=== PATIENT | female | born 2000 | race Hispanic/Latino ===

== ENCOUNTER 2020-08-17 23:22 | Emergency (ER) | payer OTHER, SELFPAY ==
[2020-08-17 23:25] VITALS: BP 110/64; PULSE 112; RESP 16; TEMP 36.8; O2SAT 98
[2020-08-18] MEDS: SODIUM CHLORIDE 0.9% IV 1,000 ML 999 ML IV CONT (00:26)
[2020-08-18] MEDS: KETOROLAC 30 MG/ML VIAL (*BKC) IV PUSH (00:26)
[2020-08-18] MEDS: ONDANSETRON INJ 4 MG/2 ML VIAL IV PUSH (00:26)
--- NOTE | 2020-08-18 00:26 | ED.HA ---
HPI - Headache General Chief Complaint: Headache Stated Complaint: HOPKINS Time Seen by Provider: 08/17/20 23:32 History of Present Illness HPI Narrative: Patient is a 19-year-old female who presents ER with headache. Symptoms began yesterday. Posterior headache feels like her typical migraine. Associate with nausea and vomiting. Has been able to control the headache with Tylenol and reports that she took any medication at this time will cause her to vomit. She has no fevers or chills or sweats. No trauma. No numbness or tingling or change in vision. Patient did go to an urgent care and get swabbed for Covid just to be safe today. Results are pending. Related Data Allergies Allergy/AdvReac Type Severity Reaction Status Date / Time No Known Allergies Allergy Verified 08/18/20 00:27 Review of Systems Constitutional: Constitutional: Denies chills, Denies fever(s) and Denies weakness ENT: Denies nasal congestion and Denies sore throat Gastrointestinal: Gastrointestinal: Denies abdominal pain, Reports nausea and Reports vomiting Neurologic: Reports headache(s), Denies focal weakness and Denies numbness PMFSH Past Medical History Medical History (Updated 08/18/20 @ 01:13 by Tu Gomez MD) Migraines Surgical History Surgical History (Updated 08/18/20 @ 00:27 by Tu Gomez MD) No history of previous surgery Social History Social History (Updated 08/18/20 @ 00:28 by Tu Gomez MD) Smoking status: Never smoker Exam Narrative: Exam Narrative: GENERAL: Well-appearing, well-nourished, and in no acute distress. HEAD: Normocephalic, atraumatic. NECK: Supple. No tenderness. CHEST: Clear to auscultation. No respiratory distress. HEART: Regular rate and rhythm. Normal peripheral pulses. ABDOMEN: Soft, nontender, nondistended. EXTREMITIES: Normal range of motion. No edema. NEURO: Alert and oriented x3. PSYCH: Normal mood and affect. Course Course Emergency Course: HOPKINS improving with toradol. D/c. Vital Signs Vital signs: Vital Signs Temperature 98.2 F 08/17/20 23:25 Pulse Rate 112 H 08/17/20 23:25 Respiratory Rate 16 08/17/20 23:25 Blood Pressure 110/64 08/17/20 23:25 Pulse Oximetry 98 08/17/20 23:25 Temperature 98.2 F 08/17/20 23:25 Pulse Rate 112 H 08/17/20 23:25 Respiratory Rate 16 08/17/20 23:25 Blood Pressure 110/64 08/17/20 23:25 Pulse Oximetry 98 08/17/20 23:25 Discharge Plan Discharge Clinical Impression: Migraine Patient Disposition: Home, Self-Care Condition: Stable Instructions: Migraine Headache (ED) Additional Instructions: Return the ER if you have chest pain or shortness of breath, you cannot keep down food or water, you lose consciousness, you have additional concerns. Prescriptions: New ondansetron 4 mg tablet,disintegrating 4 mg PO Q6H PRN (Reason: nausea and vomiting) Qty: 10 RF: 0 Follow-up/Referrals: PHYSICIAN NOT ON STAFF,NONSTAFF [Primary Care Provider] - 1 Week
[2020-08-18 01:25] VITALS: BP 113/87; PULSE 88; RESP 14; O2SAT 97
== END 2020-08-18 01:25 | disposition home or self-care (01) ==
PROVIDERS: Emergency Provider Emergency Medicine
DX: G43.909 Migraine, unspecified, not intractable, without status migrainosus (principal)
CPT/HCPCS: 96361; 96374; 96375; 99284; J1885; J2405; J7030

== ENCOUNTER 2020-08-19 17:03 | Emergency (ER) | payer OTHER, SELFPAY ==
[2020-08-19 17:10] VITALS: BP 110/57; PULSE 99; RESP 20; TEMP 36.2; O2SAT 100
[2020-08-19 17:21] LABS: Basophils Percent Auto 0.4 % (0.2-1.2); Hematocrit 31.2 % (37.0-47.0); Hemoglobin 10.4 g/dL (12.0-15.0); Immature Granulocyte Absolute 0.01 K/mm3 (0.00-0.031); Immature Granulocyte Percent A 0.2 % (0-0.5); Lymphocytes Absolute Auto 0.99 K/mm3 (0.9-3.2); Lymphocytes Percent Auto 19.1 % (18.3-44.2); Mean Corpuscular HGB Conc 33.3 g/dl (32-36); Mean Corpuscular Hemoglobin 26.8 pg (26-34); Mean Corpuscular Volume 80.4 fl (80-100); Mean Platelet Volume 10.6 fl (7.4-10.4); Monocytes Absolute Auto 0.4 K/mm3 (0.1-0.6); Monocytes Percent Auto 7.9 % (2.6-8.5); Neutrophils Absolute Auto 3.8 K/mm3 (1.3-6.7); Neutrophils Percent Auto 72.4 % (45.5-73.1); Platelet Count Result 166 k/mm3 (150-375); Red Blood Count 3.88 M/mm3 (4.2-5.4); Red Cell Distribution Width 13.2 % (11.5-14.5); White Blood Count 5.2 K/mm3 (4.5-10.0)
[2020-08-19 17:37] LABS: Alanine Aminotransferase 32 U/L (4-35); Albumin Level 4.3 g/dL (3.7-5.6); Alkaline Phosphatase 94 U/L (45-116); Anion Gap 11 mmol/L (8-16); Aspartate Amino Transferase 33 U/L (14-36); Bilirubin,Total 0.4 mg/dL (0.2-1.3); Blood Urea Nitrogen 9 mg/dL (8-21); Calcium 9.2 mg/dL (8.9-10.7); Carbon Dioxide 24 mmol/L (22-30); Chloride 103 mmol/L (98-107); Estimated CRCL calculation 108 ml/min; Estimated Glomerular Filt Rate > 60; Glucose 104 mg/dL (65-105); Lipase 38 U/L (23-300); Potassium 3.3 mmol/L (3.4-5.0); Sodium 138 mmol/L (134-143)
[2020-08-19 17:45] LABS: Add Urine Microscopic? YES; Appearance Urine Clear (Clear); Bacteria Urine Trace /hpf; Bilirubin Urine Negative (Negative); Blood Urine 1+ (Negative); Color Urine Yellow (Yellow); Glucose Urine UA Negative (Negative); Ketones Urine 1+ mg/dL (Negative); Leukocyte Esterase Ur 3+ LEU/UL (Negative); Mucus Urine Heavy /lpf; Nitrate Urine Negative (Negative); Protein Urine 1+ mg/dL (Negative); Specific Grav Ur 1.025 (1.001-1.035); Squamous Epithelial Cell Urine Many /hpf (Few); Urobilinogen Urine Negative mg/dL (<2.0)
--- NOTE | 2020-08-19 21:12 | ED.ABDPAIN ---
HPI - Abdominal Pain General Chief Complaint: Headache Stated Complaint: pelayo/n/v Time Seen by Provider: 08/19/20 18:49 Source: patient Mode of arrival: ambulatory Limitations: no limitations History of Present Illness HPI narrative: 19-year-old female Presents for evaluation of nausea vomiting and upper abdominal pain beginning this morning 2 days ago she reports having a headache and a fever She was seen here, given a migraine cocktail, improved, and was discharged She continued to somewhat be bothered by the headache yesterday but today it has improved and likewise the fever seems to be gone, however she now has these abdominal complaints She does not have any urinary symptoms, her last menstrual period was 2 weeks ago, no prior abdominal operations, no diarrhea Related Data Allergies Allergy/AdvReac Type Severity Reaction Status Date / Time No Known Allergies Allergy Verified 08/18/20 00:27 Review of Systems Review of Systems: All systems reviewed & are unremarkable except as noted in HPI and below Constitutional: Constitutional: Denies chills, Reports fatigue, Reports fever(s), Denies headache(s) and Denies weakness Eyes: Eyes: Reports no additional eye complaints and Denies change in vision ENT: Denies headache(s), Denies epistaxis, Denies nasal congestion and Denies sore throat Cardiovascular: Cardiovascular: Denies chest pain, Denies leg edema, Denies palpitations and Denies dyspnea Respiratory: Respiratory: Denies cough, Denies dyspnea and Denies wheezing Gastrointestinal: Gastrointestinal: Reports abdominal pain, Denies diarrhea, Reports nausea and Reports vomiting Genitourinary: Genitourinary: Denies hematuria, Denies urinary frequency, Denies dysuria and Denies flank pain Musculoskeletal: Musculoskeletal: Reports myalgias, Denies deformity, Denies arthralgias, Denies joint swelling, Denies muscle weakness and Denies numbness Integumentary/Breasts: Skin/Breast: Denies rash and Denies wounds Neurologic: Reports headache(s), Denies focal weakness, Denies numbness and Denies weakness Psychiatric: Psychiatric: Reports no additional psychiatric complaints Endocrine: Endocrine: Denies fatigue and Denies palpitations Hematologic/Lymphatic: Hematologic/Lymphatic: Denies easy bleeding and Denies easy bruising Allergic/Immunologic: Allergic/Immunologic: Denies wheezing PMFSH Past Medical History Medical History (Updated 08/19/20 @ 21:17 by Aaron Ferraro MD) Migraines Surgical History Surgical History (Updated 08/18/20 @ 00:27 by Tu Gomez MD) No history of previous surgery Social History Social History (Updated 08/18/20 @ 00:28 by Tu Gomez MD) Smoking status: Never smoker Exam Const: General: no acute distress, well developed and awake Nutritional Appearance: well nourished Orientation/consciousness: patient oriented x3 (alert) Limitations: no limitations HENMT: Head: normocephalic and atraumatic Ears: external ears normal General nose exam: No nasal discharge present and no epistaxis Face and sinus: face symmetric Mouth: Yes moist mucous membranes Eyes: Conjunctivae: conjunctivae normal Sclera: sclerae normal EOM: EOMs intact bilaterally Neck: Neck: normal visual inspection, no lymphadenopathy, no meningeal signs, supple and no JVD Chest: Chest palpation & inspection: deferred Resp: Effort & Inspection: normal respiratory effort Auscultation: clear to auscultation bilaterally, no rales, no rhonchi, no wheezes and other (BS =) Cardio: Rate: regular rate Rhythm: regular rhythm Heart sounds: no gallops and no murmurs GI: Inspection: normal to inspection and non-distended GI Palp: Yes Soft to palpation and Yes Tenderness to palpation present (GI) (Mildly tender in the epigastric area with no rebound guarding or mass) Auscultation: normal bowel sounds : General: Yes no CVA tenderness Back/Spine/Pelvis: Back: no CVA tenderness Thoracic/Lumbar Spine: t
[2020-08-19] MEDS: ONDANSETRON INJ 4 MG/2 ML VIAL IV PUSH (21:27)
[2020-08-19] MEDS: LACTATED RINGERS 1,000 ML 999 ML IV CONT (21:27)
[2020-08-19] MEDS: BELLADONNA ALK/PHENOB ELIX 10 ML, MAG HYDROX/ALUMINUM HYD/SIMETH 30 ML, LIDOCAINE HCL 2... PO (21:27)
[2020-08-19] MEDS: KETOROLAC 15 MG/ML VIAL (*BKC) IV PUSH (21:28)
[2020-08-19 21:35] VITALS: BP 112/72; PULSE 86; RESP 18; O2SAT 100
[2020-08-19 22:29] VITALS: BP 110/64; PULSE 89; RESP 16; TEMP 36.6; O2SAT 100
== END 2020-08-19 22:30 | disposition home or self-care (01) ==
PROVIDERS: Emergency Provider Emergency Medicine
DX: R10.9 Unspecified abdominal pain (principal)
CPT/HCPCS: 36415; 80053; 81001; 81025; 83690; 85025; 96361; 96374; 96375; 99284; A9270; J1885; J2405; J7120

== ENCOUNTER 2020-10-10 14:25 | Emergency (ER) | payer OTHER, SELFPAY ==
[2020-10-10 14:32] VITALS: BP 96/53; PULSE 88; RESP 20; TEMP 36.1; O2SAT 100
--- NOTE | 2020-10-10 15:04 | ED.FEMALEGU ---
HPI - Female Genitourinary General Chief complaint: Urogenital-Female Stated complaint: FREQUENT/PAINFUL URINATION Time Seen by Provider: 10/10/20 14:54 Source: patient and RN notes reviewed Mode of arrival: ambulatory Limitations: no limitations History of Present Illness HPI Narrative: Patient presents today complaining of dysuria and urinary frequency since last night. Denies hematuria or abdominal pain. She is not currently menstruating. States mild low back pain. Per [facility] staff, patient was on a course of Bactrim and Macrobid towards the end of August 2020. Per patient, these antibiotics were to treat UTIs and at least 1 of these had a subsequent negative urine culture. She took a dose of ibuprofen last night without relief. MD elicited complaint: dysuria Related Data Home Medications Medication Instructions Recorded Confirmed medroxyprogesterone [Depo-Provera 150 mg IM [id number] 10/10/20 10/10/20 Contraceptive] Allergies Allergy/AdvReac Type Severity Reaction Status Date / Time No Known Allergies Allergy Verified 10/10/20 14:32 [facility] Past Medical History Medical History (Updated 10/10/20 @ 15:12 by Mariama Art, [facility], ) Migraines Surgical History Surgical History (Updated 08/18/20 @ 00:27 by Tu Gomez MD) No history of previous surgery Social History Social History (Updated 08/18/20 @ 00:28 by Tu Gomez MD) Smoking status: Never smoker Comments At time of signature, I have reviewed and agree with nursing past medical, surgical, social and family history unless otherwise noted. Please see nursing chart for further information. There is no relevant family history pertinent to the presenting complaint Exam Narrative: Exam Narrative: GENERAL: Well-appearing, well-nourished, and in no acute distress. HEAD: Normocephalic, atraumatic. EYES: EOMI. No redness or drainage. Conjunctivae normal. ENT: Mucous membranes pink and moist. NECK: Normal AROM. CHEST: No respiratory distress. Clear to auscultation. HEART: Regular rate and rhythm. No murmur appreciated. Normal peripheral pulses. ABDOMEN: Soft, nontender, nondistended, normal active bowel sounds.-CVAT EXTREMITIES: Normal range of motion. No edema. SKIN: Warm, dry, no rash. Capillary refill normal. Normal skin turgor. NEURO: No focal deficits. Alert and oriented x3. Gait steady. PSYCH: Normal affect. No signs of depression or anxiety. Course Vital Signs Vital signs: Vital Signs Temperature 96.9 F L 10/10/20 14:32 Pulse Rate 88 10/10/20 14:32 Respiratory Rate 20 10/10/20 14:32 Blood Pressure 96/53 L 10/10/20 14:32 Pulse Oximetry 100 10/10/20 14:32 Temperature 96.9 F L 10/10/20 14:32 Pulse Rate 88 10/10/20 14:32 Respiratory Rate 20 10/10/20 14:32 Blood Pressure 96/53 L 10/10/20 14:32 Pulse Oximetry 100 10/10/20 14:32 Reviewed MDM - Female Genitourinary Differential Diagnosis Differential diagnosis: Likely urinary tract infection, vaginitis and cystitis Lab Data Attestation: I reviewed the patient's lab results. Labs: Urine Glucose Negative Reference Range: Negative Urine Bilirubin Negative Reference Range: Negative Urine Ketone Negative Reference Range: Negative Urine Specific [place] 1.020 Reference Range:1.001-1.035 Urine Blood 2+ Reference Range: Negative * * Urine pH 7.0 Reference Range: 5.0-9.0 Urine Protein Negative Reference Range: Negative
== END 2020-10-10 15:20 | disposition home or self-care (01) ==
PROVIDERS: Emergency Provider Nurse Practitioner
DX: N30.01 Acute cystitis with hematuria (principal)
CPT/HCPCS: 81003; 87086; 99213; G0463

== ENCOUNTER 2020-10-22 15:13 | Emergency (ER) | payer OTHER, SELFPAY ==
--- NOTE | 2020-10-22 15:20 | ED.GENADULT ---
HPI - General Adult General Chief complaint: Urogenital-Female Stated complaint: POS UTI Time Seen by Provider: 10/22/20 15:21 Source: patient Mode of arrival: ambulatory Limitations: no limitations History of Present Illness HPI narrative: 20-year-old female patient presents to the [facility] with complaints of urinary symptoms that started yesterday. Patient states that she was seen here about 2 weeks ago for similar symptoms and was treated for urinary tract infection. Patient states she was given Keflex which she finished about 5 days ago. Patient states she has had urgency, frequency and burning with urination. Denies any fevers, body aches or chills. Denies any low back pain. Denies any nausea, vomiting or diarrhea. Denies concerns for or STDs. Patient's culture results from when she was seen here 2 weeks ago was negative and patient also had a negative culture result at the end of August in which she was treated for UTI at that time as well. Related Data Home Medications Medication Instructions Recorded Confirmed medroxyprogesterone [Depo-Provera 150 mg IM [id number] 10/10/20 10/22/20 Contraceptive] Allergies Allergy/AdvReac Type Severity Reaction Status Date / Time No Known Allergies Allergy Verified 10/22/20 15:22 Review of Systems Review of Systems: Narrative: CONSTITUTIONAL: Denies fever, chills, or sweats. EYES: Denies visual changes, redness, or discharge. ENT: Denies rhinorrhea, congestion, sore throat, or otalgia. CARDIOVASCULAR: Denies chest pain, palpitations, or edema. RESPIRATORY: Denies cough or dyspnea. GASTROINTESTINAL: Denies abdominal pain, nausea, vomiting, or diarrhea. GENITOURINARY: Denies dysuria or hematuria. Positive pain with urination, urgency and frequency since yesterday SKIN: Denies rash or itching. MUSCULOSKELETAL: Denies back pain, joint pain, or myalgia. NEUROLOGIC: Denies headache, numbness, or weakness. PSYCHIATRIC: Denies anxiety or depression. [facility]LY [facility], [facility] Past Medical History Medical History Migraines Surgical History Surgical History No history of previous surgery Social History Social History (Reviewed 02/11/21 @ 15:21 by FELIPE Farmer Smoking status: Never smoker Comments At the time of my signature I agree with nursing past medical history, surgical, social, and family history. There is no relevant family history pertinent to the presenting complaint. Exam Narrative: Exam Narrative: GENERAL: Well-appearing, well-nourished, and in no acute distress. HEAD: Normocephalic, atraumatic. EYES: PERRLA and EOMI. ENT: Nares clear, no rhinorrhea or epistaxis. Mucous membranes moist. NECK: Supple. No lymphadenopathy CHEST: Clear to auscultation. No respiratory distress. HEART: Regular rate and rhythm. No murmur heard. Normal peripheral pulses. ABDOMEN: Soft, nontender, nondistended, normal active bowel sounds. No CVA tenderness on percussion EXTREMITIES: Normal range of motion. No edema. SKIN: Warm, dry, no rash. NEURO: No focal deficits. Alert and oriented x3. Course Vital Signs Vital signs: Vital Signs Temperature 36.5 C 10/22/20 15:23 Pulse Rate 94 10/22/20 15:23 Respiratory Rate 16 10/22/20 15:23 Blood Pressure 97/53 L 10/22/20 15:23 Pulse Oximetry 100 10/22/20 15:23 Temperature 36.5 C 10/22/20 15:23 Pulse Rate 94 10/22/20 15:23 Respiratory Rate 16 10/22/20 15:23 Blood Pressure 97/53 L 10/22/20 15:23 Pulse Oximetry 100 10/22/20 15:23 Vital signs reviewed Medical Decision Making Differential Diagnosis Differential Diagnosis: Differential diagnosis: Uncomplicated lower UTI, uncomplicated UTI, pyelonephritis Discussed with patient that her urine dip does show some blood and leukocytes. Discussed with her that I am concerned because of the fact that her last 2 cultures were negative. Discuss
[2020-10-22 15:23] VITALS: BP 97/53; PULSE 94; RESP 16; TEMP 36.5; O2SAT 100
== END 2020-10-22 15:48 | disposition home or self-care (01) ==
PROVIDERS: Emergency Provider Nurse Practitioner Family
DX: N30.01 Acute cystitis with hematuria (principal)
CPT/HCPCS: 81003; 81025; 87077; 87086; 87088; 87186; 99213; G0463

== ENCOUNTER 2021-03-03 16:23 | Outpatient (CLI) | payer OTHER, SELFPAY ==
[2021-03-03 17:05] LABS: Beta HCG Quantitative < 2.39 mIU/ML
== END 2021-03-03 16:24 | disposition home or self-care (01) ==
PROVIDERS: Visit Provider Obstetrics & Gynecology
DX: N92.6 Irregular menstruation, unspecified (principal)
CPT/HCPCS: 36415; 84702

== ENCOUNTER 2021-09-13 13:00 | Emergency (ER) | payer OTHER, SELFPAY ==
[2021-09-13 13:13] VITALS: BP 100/60; PULSE 87; RESP 16; TEMP 36.6; O2SAT 99
--- NOTE | 2021-09-13 13:21 | ED.FEMALEGU ---
HPI - Female Genitourinary General Chief complaint: Urogenital-Female Stated complaint: UTI Time Seen by Provider: 09/13/21 13:22 Source: patient, RN notes reviewed and old records reviewed Mode of arrival: ambulatory Limitations: no limitations History of Present Illness HPI Narrative: 21-year-old female presents to the [facility] with complaints of urinary symptoms. Patient reports frequency and burning since yesterday. Last menstrual period 3 weeks ago. No other symptoms. Denies chest pain, abdominal pain. No nausea vomiting or diarrhea. MD elicited complaint: UTI Related Data Home Medications Medication Instructions Recorded Confirmed medroxyprogesterone [Depo-Provera 150 mg IM [id number] 10/10/20 09/13/21 Contraceptive] Allergies Allergy/AdvReac Type Severity Reaction Status Date / Time No Known Allergies Allergy Verified 09/13/21 13:04 Review of Systems Review of Systems: All systems reviewed & are unremarkable except as noted in HPI and below Constitutional: Constitutional: Reports no additional constitutional complaints, Denies chills and Denies fatigue Eyes: Eyes: Reports no additional eye complaints ENT: Reports system reviewed and no additional complaints, except as documented Cardiovascular: Cardiovascular: Reports no additional cardiovascular complaints Respiratory: Respiratory: Reports no additional respiratory complaints Gastrointestinal: Gastrointestinal: Reports no additional gastrointestinal complaints, Denies abdominal pain, Denies nausea and Denies vomiting Genitourinary: Genitourinary: Reports as per HPI and Reports dysuria Musculoskeletal: Musculoskeletal: Reports no additional musculoskeletal complaints Integumentary/Breasts: Skin/Breast: Reports system reviewed and no additional complaints, except as docu Neurologic: Reports system reviewed and no additional complaints, except as documented Psychiatric: Psychiatric: Reports no additional psychiatric complaints Allergic/Immunologic: Allergic/Immunologic: Reports no additional allergic/immunologic complaints [facility] Past Medical History Medical History Migraines Surgical History Surgical History No history of previous surgery Social History Social History Smoking status: Never smoker Comments At the time of my signature, I reviewed and agree with the nursing past medical, surgical, social, and family history. There is no relevant family history pertinent to the patient complaint. Exam Const: General: healthy appearing, no acute distress and alert Nutritional Appearance: well nourished Orientation/consciousness: patient oriented x3 Limitations: no limitations HENMT: Head: normal to inspection Ears: external ears normal Eyes: Pupils: Equal, round and reactive pupils present Neck: Neck: normal visual inspection, no lymphadenopathy and no meningeal signs Chest: Chest palpation & inspection: normal inspection of the chest Resp: Effort & Inspection: normal respiratory effort Auscultation: clear to auscultation bilaterally Cardio: Rate: regular rate Rhythm: regular rhythm : General: Yes no CVA tenderness Back/Spine/Pelvis: Back: no CVA tenderness Skin: General skin exam: normal color Rashes: no rashes Wounds: no wounds Neuro: General: patient oriented x3, moves all extremities, no meningeal signs and no focal motor deficits Speech: normal speech Gait exam (Neuro): Normal gait present Extrem: General: normal to inspection Psych: Mental Status: mental status grossly normal Affect: normal affect Attitude: cooperative Thought content: Yes Normal thought content present Judgement: Good judgement present (Psych) Course Course Emergency Course: Discharge instructions reviewed with patient, as well as provided in writing per nursing staff. The instr
[2021-09-13 13:33] LABS: Glucose Point of Care 109 mg/dl (65-105)
== END 2021-09-13 13:40 | disposition home or self-care (01) ==
PROVIDERS: Emergency Provider Nurse Practitioner
DX: N39.0 Urinary tract infection, site not specified (principal)
CPT/HCPCS: 81003; 82948; 87077; 87086; 87088; 99213; G0463

== ENCOUNTER 2022-12-26 08:31 | Emergency (ER) | payer OTHER, SELFPAY ==
[2022-12-26 08:51] VITALS: BP 89/50; PULSE 80; RESP 16; TEMP 36.1; O2SAT 99
--- NOTE | 2022-12-26 08:58 | ED.FEMALEGU ---
HPI - Female Genitourinary General Chief complaint: Urogenital-Female Stated complaint: UTI Time Seen by Provider: 12/26/22 08:53 Source: patient and RN notes reviewed Mode of arrival: ambulatory Limitations: no limitations History of Present Illness HPI Narrative: Patient presents today complaining of malodorous urine since yesterday with frequency, urgency, and dysuria since 5:00 a.m. this morning. Denies any additional symptoms. She took a dose of azo just prior to arrival. No recent antibiotic use Related Data Home Medications Medication Instructions Recorded Confirmed medroxyprogesterone 150 mg/mL 150 mg IM [id number] 10/10/20 12/26/22 intramuscular suspension Allergies Allergy/AdvReac Type Severity Reaction Status Date / Time No Known Allergies Allergy Verified 12/26/22 08:41 Review of Systems Review of Systems: CONSTITUTIONAL: Denies body aches, fever, chills, or sweats. EYES: Denies visual changes, redness, or discharge. ENT: Denies rhinorrhea, congestion, sore throat, or otalgia. CARDIOVASCULAR: Denies chest pain, palpitations, or edema. RESPIRATORY: Denies cough or dyspnea. GASTROINTESTINAL: Denies abdominal pain, nausea, vomiting, or diarrhea. GENITOURINARY:+ malodorous urine, dysuria, urgency, frequency. SKIN: Denies rash, itching, or wounds. MUSCULOSKELETAL: Denies back pain, joint pain, or myalgia. NEUROLOGIC: Denies headache, numbness, tingling, or weakness. PSYCH: Denies depression or anxiety. PMFSH Past Medical History Medical History Migraines Surgical History Surgical History No history of previous surgery Social History Social History Smoking status: Never smoker Comments At time of signature, I have reviewed and agree with nursing past medical, surgical, social and family history unless otherwise noted. Please see nursing chart for further information. There is no relevant family history pertinent to the presenting complaint Exam Narrative: GENERAL: Well-appearing, well-nourished, and in no acute distress. HEAD: Normocephalic, atraumatic. EYES: EOMI. No redness or drainage. Conjunctivae normal. ENT: Mucous membranes pink and moist. NECK: Normal AROM. CHEST: No respiratory distress. Clear to auscultation. HEART: Regular rate and rhythm. No murmur appreciated. ABDOMEN: Soft, nontender, nondistended, normal active bowel sounds.-CVAT EXTREMITIES: Normal range of motion. No edema. SKIN: Warm, dry, no rash. Capillary refill normal. Normal skin turgor. NEURO: No focal deficits. Alert and oriented x3. Gait steady. PSYCH: Normal affect. No signs of depression or anxiety. Course Course Level of Care: Express Care Visit Vital Signs Vital signs: Vital Signs Temperature 97.0 F L 12/26/22 08:51 Pulse Rate 80 12/26/22 08:51 Respiratory Rate 16 12/26/22 08:51 Blood Pressure 89/50 L 12/26/22 08:51 Pulse Oximetry 99 12/26/22 08:51 Oxygen Delivery Room Air 12/26/22 08:51 Temperature 97.0 F L 12/26/22 08:51 Pulse Rate 80 12/26/22 08:51 Respiratory Rate 16 12/26/22 08:51 Blood Pressure 89/50 L 12/26/22 08:51 Pulse Oximetry 99 12/26/22 08:51 Oxygen Delivery Room Air 12/26/22 08:51 Reviewed MDM - Female Genitourinary MDM Narrative Medical decision making narrative: Urinalysis positive for urinary tract infection. Prescription for Macrobid sent to pharmacy. Anticipatory guidance given. Differential Diagnosis Differential diagnosis: Likely urinary tract infection, vaginitis, cystitis and other (Pyelonephritis, interstitial cystitis) Lab Data Attestation: I reviewed the patient's lab results. Labs: Urine Glucose Negative Reference Range: Negative Urine Bilirubin Negativ
== END 2022-12-26 09:04 | disposition home or self-care (01) ==
PROVIDERS: Emergency Provider Nurse Practitioner
DX: N30.01 Acute cystitis with hematuria (principal)
CPT/HCPCS: 81003; 87077; 87086; 87186; 99213; G0463

== ENCOUNTER 2024-12-03 16:44 | Emergency (ER) | payer OTHER, SELFPAY ==
--- NOTE | ~2024-12-03 | XR_ITS ---
XR chest 2V Ordering provider: Melissa Brewer APRN History: 24 years Female with . cough . Comparison: None. FINDINGS: MEDIASTINUM: The cardiac silhouette is not enlarged. LUNGS: No effusions or pneumothorax. Prominent bronchovascular markings with peribronchial thickening in the lower lobes which may indicate bronchiolitis. Follow-up advised. OTHER: No free air under the diaphragm. IMPRESSION: Highly suggestive bronchiolitis. Follow-up advised. Reviewed, dictated and finalized at location A.
[2024-12-03 16:51] VITALS: BP 136/68; PULSE 97; RESP 20; TEMP 36.3; O2SAT 100
--- NOTE | 2024-12-03 16:53 | ECG_ITS ---
Test Date: 2024-12-03 17:06:39 Measurements Intervals [place] Rate: 79 P: 9 ND: 147 QRS: 15 QRSD: 93 T: 7 QT: 374 QTc: 430 Interpretive Statements SINUS RHYTHM No previous ECG available for comparison Electronically Signed On 12-04-2024 12:45:11 CDT by Alejandra Montalvo M.D.
--- NOTE | 2024-12-03 16:58 | ED.GENADULT ---
HPI - General Adult General Chief complaint: Unspecified <Melissa Brewer APRN - Last Filed: 12/03/24 17:15> Stated complaint: Multiple s/sx-sent to be checked <Melissasancho Brewer APRN - Last Filed: 12/03/24 17:15> Time Seen by Provider: 12/03/24 17:00 <Melissa Brewer APRN - Last Filed: 12/03/24 17:15> Focused HPI: Patient is a 24-year-old female who presents to the ER with concerns of recent blood work results. She reports she took it upon herself to get blood work done through an [employer] company. Patient noted some abnormalities with her results so she called primary care to set up an appointment. They advised her to come to the ER for evaluation. Patient reports for the past few months she has had muscle aches and bilateral leg soreness. She reports she has been sent multiple specialists but thing has been diagnosed. Patient denies any chest pain, shortness of breath, recent fevers, abdominal pain. GENERAL: Well-appearing, well-nourished, and in no acute distress. HEAD: Normocephalic, atraumatic. CHEST: Clear to auscultation. ?No respiratory distress. HEART: Regular rate and rhythm.? NEURO: ?Alert and oriented x3. Patient screened in triage and initial orders placed.? ?Additional care and disposition to be based upon?diagnostic testing and treatment. <Melissa Brewer APRN - Last Filed: 12/03/24 17:15> Source: patient <Jose Noonan PA-C - Last Filed: 12/03/24 18:04> Mode of arrival: ambulatory <Jose Noonan PA-C - Last Filed: 12/03/24 18:04> Limitations: no limitations <LIZZIE Chavez Last Filed: 12/03/24 18:04> History of Present Illness HPI narrative: Agree with MSE note above. <Jose Noonan PA-C - Last Filed: 12/03/24 18:04> Related Data Home medications: Home Medications ?Medication ?Instructions ?Recorded ?Confirmed ?Last Taken ?Type medroxyprogesterone 150 mg/mL 150 mg IM [id number] 10/10/20 12/26/22 Unknown History intramuscular suspension <Melissasancho Brewer APRN - Last Filed: 12/03/24 17:15> Allergies/adverse reactions: Allergies Allergy/AdvReac Type Severity Reaction Status Date / Time No Known Allergies Allergy Verified 12/03/24 16:45 <Melissa Brewer APRN - Last Filed: 12/03/24 17:15> Review of Systems Review of Systems: All systems as dictated in HPI <Jose Noonan PA-C - Last Filed: 12/03/24 18:04> PMFSH Past Medical History Medical History: Medical History Migraines <Melissa Brewer APRN - Last Filed: 12/03/24 17:15> Surgical History Surgical History: Surgical History No history of previous surgery <Melissa Brewer APRN - Last Filed: 12/03/24 17:15> Social History Social History: Social History Smoking status: Never smoker <Melissa Brewer APRN - Last Filed: 12/03/24 17:15> Exam Narrative: GENERAL: Well-appearing, well-nourished, and in no acute distress. HEAD: Normocephalic, atraumatic. EYES: PERRLA and EOMI. ENT: Nares clear, no rhinorrhea or epistaxis. Mucous membranes moist. Oropharynx without tonsillar hypertrophy exudate or other lesions. NECK: Supple. No adenopathy or masses. CHEST: No respiratory distress. Clear to auscultation. No wheezes rales or rhonchi HEART: Regular rate and rhythm. No murmur heard. Normal peripheral pulses. ABDOMEN: Soft, nontender, nondistended, normal active bowel sounds. MSK: Normal range of motion. No edema. SKIN: Warm, dry, no rash. NEURO: Alert and oriented x4. No focal deficits. PSYCH: Normal mood and affect. <Jose Noonan PA-C - Last Filed: 12/03/24 18:04> Course Vital Signs Vital signs: Vital Signs Temperature 97.4 F L 12/03/24 16:51 Pulse Rate 97 12/03/24 16:51 Respiratory Rate 20 12/03/24 16:51 Blood Pressure 136/68 12/03/24 16:51 Pulse Oximetry 100 12/03/24 16:51 Oxygen Delivery Room Air 12/03/24 16:51 Temperature 97.4 F L 12/03/24 16:51 Pulse Rate 97 12/03/24 16:51 Respiratory Rate 20 12/03/24 16:51 Blood Pressure 136/68 12/03/24 16:51 Pulse Oximetry 100 12/03/24 16:51 Oxygen Delivery Room Air 12/03/24 16:51 <Melissa Brewer APRN - Last Filed: 12/03/24 17:15> Vital Signs Temperature 97.4 F L 12/03/24 16:51 Pulse Rate 97 12/03/24 16:51 Respiratory Rate 20 12/03/24 16:51 Blood Pressure 136/68 12/03/24 16:51 Pulse Oximetry 100 12/03/24 16:51 Oxygen Delivery Room Air 12/03/24 16:51 Temperature 97.4 F L 12/03/24 16:51 Pulse Rate 97 12/03/24 16:51 Respiratory Rate 20 12/03/24 16:51 Blood Pressure 136/68 12/03/24 16:51 Pulse Oximetry 100 12/03/24 16:51 Oxygen Delivery Room Air 12/03/24 16:51 <Jose Noonan PA-C - Last Filed: 12/03/24 18:04> Medical Decision Making MDM Narrative Medical decision making narrative: This is a 24-year-old female who presents to the ED for chief complaint of bilateral lower extremity pain and weakness ongoing over the past several months. Vitals are normal. She is trying to get into a new PCP who recommended that she come to the ER for initial evaluation. Exam today is benign. lab work is unremarkable overall. Chest x-ray shows some evidence of possible bronchiolitis, however patient has had no cough or recent illness to suggest symptomatic correlation there. Encouraged follow-up with PCP on these issues. Recommend OTC ibuprofen every 6 hours as needed for pain control. Patient will be discharged in stable condition. Supportive measures discussed and return precautions given. Patient is understanding and agreeable with plan for discharge with PCP follow-up. <Jose Noonan PA-C - Last Filed: 12/03/24 18:04> Vital Signs Vital Signs: Vital Signs Temperature 97.4 F L 12/03/24 16:51 Pulse Rate 97 12/03/24 16:51 Respiratory Rate 20 12/03/24 16:51 Blood Pressure 136/68 12/03/24 16:51 Pulse Oximetry 100 12/03/24 16:51 Oxygen Delivery Room Air 12/03/24 16:51 Temperature 97.4 F L 12/03/24 16:51 Pulse Rate 97 12/03/24 16:51 Respiratory Rate 20 12/03/24 16:51 Blood Pressure 136/68 12/03/24 16:51 Pulse Oximetry 100 12/03/24 16:51 Oxygen Delivery Room Air 12/03/24 16:51 <Melissa Brewer, SPECIAL WARFARE BOAT OPERATOR - Last Filed: 12/03/24 17:15> Vital Signs Temperature 97.4 F L 12/03/24 16:51 Pulse Rate 97 12/03/24 16:51 Respiratory Rate 20 12/03/24 16:51 Blood Pressure 136/68 12/03/24 16:51 Pulse Oximetry 100 12/03/24 16:51 Oxygen Delivery Room Air 12/03/24 16:51 Temperature 97.4 F L 12/03/24 16:51 Pulse Rate 97 12/03/24 16:51 Respiratory Rate 20 12/03/24 16:51 Blood Pressure 136/68 12/03/24 16:51 Pulse Oximetry 100 12/03/24 16:51 Oxygen Delivery Room Air 12/03/24 16:51 <Jose Noonan PA-C - Last Filed: 12/03/24 18:04> Lab Data Result diagrams: 12/03/24 17:24 12/03/24 17:24 <Melissa Brewer APRN - Last Filed: 12/03/24 17:15> Labs: Lab Results 12/03/24 Range/Units 17:24 WBC 10.3 H (4.5-10.0) K/mm3 RBC 4.26 (4.2-5.4) M/mm3 Hgb 12.6 (12.0-15.0) g/dL Hct 37.0 (37.0-47.0) % MCV 86.9 (80-100) fl MCH 29.6 (26-34) pg MCHC 34.1 (32-36) g/dl RDW 13.1 (11.5-14.5) % Plt Count 204 (150-375) k/mm3 MPV 10.8 H (7.4-10.4) fl Immature Gran % (Auto) 0.3 (0-0.5) % Neut % (Auto) 60.7 (45.5-73.1) % Lymph % (Auto) 30.4 (18.3-44.2) % [place] % (Auto) 6.7 (2.6-8.5) % Eos % (Auto) 1.6 (0-4.4) % Baso % (Auto) 0.3 (0.2-1.2) % Lymph # (Auto) 3.12 (0.9-3.2) K/mm3 [place] # (Auto) 0.7 H (0.1-0.6) K/mm3 Eos # (Auto) 0.2 (0-0.3) K/mm3 Baso # (Auto) 0.0 (0.0-0.1) K/mm3 Abs Immat Gran (auto) 0.03 (0.00-0.031) K/mm3 Absolute Neuts (auto) 6.3 (1.3-6.7) K/mm3 Absolute Nucleated RBC 0.000 (0.0-0.012) K/mm3 Nucleated RBC % 0.0 (0.0-0.2) % PT Pending INR Pending APTT Pending Sodium Pending Potassium Pending Chloride Pending Carbon Dioxide Pending Anion Gap Pending BUN Pending Creatinine Pending Estim Creat Clear Calc Pending Estimated GFR Pending Glucose Pending Calcium Pending Magnesium Pending Total Bilirubin Pending AST Pending ALT Pending Alkaline Phosphatase Pending Total Creatine Kinase Pending Total Protein Pending Albumin Pending Lipase Pending <Melissa Brewer, SPECIAL WARF[employer] BOAT OPERATOR - Last Filed: 12/03/24 17:15> Lab Results 12/03/24 Range/Units 17:24 WBC 10.3 H (4.5-10.0) K/mm3 RBC 4.26 (4.2-5.4) M/mm3 Hgb 12.6 (12.0-15.0) g/dL Hct 37.0 (37.0-47.0) % MCV 86.9 (80-100) fl MCH 29.6 (26-34) pg MCHC 34.1 (32-36) g/dl RDW 13.1 (11.5-14.5) % Plt Count 204 (150-375) k/mm3 MPV 10.8 H (7.4-10.4) fl Immature Gran % (Auto) 0.3 (0-0.5) % Neut % (Auto) 60.7 (45.5-73.1) % Lymph % (Auto) 30.4 (18.3-44.2) % [place] % (Auto) 6.7 (2.6-8.5) % Eos % (Auto) 1.6 (0-4.4) % Baso % (Auto) 0.3 (0.2-1.2) % Lymph # (Auto) 3.12 (0.9-3.2) K/mm3 [place] # (Auto) 0.7 H (0.1-0.6) K/mm3 Eos # (Auto) 0.2 (0-0.3) K/mm3 Baso # (Auto) 0.0 (0.0-0.1) K/mm3 Abs Immat Gran (auto) 0.03 (0.00-0.031) K/mm3 Absolute Neuts (auto) 6.3 (1.3-6.7) K/mm3 Absolute Nucleated RBC 0.000 (0.0-0.012) K/mm3 Nucleated RBC % 0.0 (0.0-0.2) % PT Pending INR Pending APTT Pending Sodium Pending Potassium Pending Chloride Pending Carbon Dioxide Pending Anion Gap Pending BUN Pending Creatinine Pending Estim Creat Clear Calc Pending Estimated GFR Pending Glucose Pending Calcium Pending Magnesium Pending Total Bilirubin Pending AST Pending ALT Pending Alkaline Phosphatase Pending Total Creatine Kinase Pending Total Protein Pending Albumin Pending Lipase Pending <Jose Noonan PA-C - Last Filed: 12/03/24 18:04> Discharge Plan Discharge Clinical Impression: Bilateral lower extremity pain <Melissa Brewer APRN - Last Filed: 12/03/24 17:15> Patient Disposition: Home, Self-Care <Melissa Brewer APRN - Last Filed: 12/03/24 17:15> Condition: Stable <Melissa Brewer APRN - Last Filed: 12/03/24 17:15> Instructions: Antibiotic Form <Melissa Brewer APRN - Last Filed: 12/03/24 17:15> Additional Instructions: Your exam and workup today are reassuring overall. There was some bronchial thickening on the chest x-ray, however this may be more of an over read. Please follow-up with your PCP on these issues. If you have any new or worsening symptoms please return to the ER for further evaluation. <Melissa Brewer APRN - Last Filed: 12/03/24 17:15> Patient Language: Romansh <Melissa Brewer APRN - Last Filed: 12/03/24 17:15> Prescriptions: No Action medroxyprogesterone [Depo-Provera Contraceptive] 150 mg/mL Suspension 150 mg IM [id number] nitrofurantoin monohyd/m-cryst [Macrobid] 100 mg capsule 100 mg PO Q12H 7 Days Qty: 14 0RF Rx Instructions: must administer with a meal/food <Melissa Brewer APRN - Last Filed: 12/03/24 17:15> Follow-up/Referrals: [facility]IC[facility] [Non-Staff] - <Melissa Brewer APRN - Last Filed: 12/03/24 17:15> Time of Disposition: 18:02 <Melissa Brewer APRN - Last Filed: 12/03/24 17:15> 18:02 <Jose Noonan PA-C - Last Filed: 12/03/24 18:04>
[2024-12-03 17:34] LABS: Basophils Percent Auto 0.3 % (0.2-1.2); Eosinophils Absolute Auto 0.2 K/mm3 (0-0.3); Eosinophils Percent Auto 1.6 % (0-4.4); Hemoglobin 12.6 g/dL (12.0-15.0); Immature Granulocyte Absolute 0.03 K/mm3 (0.00-0.031); Immature Granulocyte Percent A 0.3 % (0-0.5); Lymphocytes Absolute Auto 3.12 K/mm3 (0.9-3.2); Lymphocytes Percent Auto 30.4 % (18.3-44.2); Mean Corpuscular HGB Conc 34.1 g/dl (32-36); Mean Corpuscular Hemoglobin 29.6 pg (26-34); Mean Corpuscular Volume 86.9 fl (80-100); Mean Platelet Volume 10.8 fl (7.4-10.4); Monocytes Absolute Auto 0.7 K/mm3 (0.1-0.6); Monocytes Percent Auto 6.7 % (2.6-8.5); Neutrophils Absolute Auto 6.3 K/mm3 (1.3-6.7); Neutrophils Percent Auto 60.7 % (45.5-73.1); Platelet Count Result 204 k/mm3 (150-375); Red Blood Count 4.26 M/mm3 (4.2-5.4); Red Cell Distribution Width 13.1 % (11.5-14.5); White Blood Count 10.3 K/mm3 (4.5-10.0)
[2024-12-03 17:44] LABS: Alanine Aminotransferase 21 U/L (6-35); Albumin Level 4.7 g/dL (3.5-5.1); Alkaline Phosphatase 75 U/L (38-126); Anion Gap 11 mmol/L (4-12); Aspartate Amino Transferase 22 U/L (14-36); Bilirubin,Total 0.3 mg/dL (0.2-1.3); Blood Urea Nitrogen 16 mg/dL (7-17); Calcium 9.3 mg/dL (8.4-10.2); Carbon Dioxide 23 mmol/L (22-30); Chloride 104 mmol/L (98-107); Creatine Kinase 51 U/L (30-135); Estimated CRCL calculation 99 ml/min; Estimated Glomerular Filt Rate > 60; Glucose 97 mg/dL (65-110); INR 1.1; Lipase 67 U/L (23-300); Potassium 3.6 mmol/L (3.4-5.0); Prothrombin Time 14.4 Seconds (11.1-14.7); Sodium 138 mmol/L (137-145)
[2024-12-03 17:45] LABS: Partial Thromboplastin Time 30.6 Seconds (22.3-36.8)
--- OUTSIDE RECORDS SUMMARY | 2024-12-03 18:42 | XMS_ITS | Encounter Summary ---
Author Organization [facility] Address [address] [place] [address] Phone Care Team Providers Care Industry Analyst Name Role Phone Yolanda Catalan APRN, CNP Unavailable +- [phone] Yolanda Catalan APRN, CNP Primary Care Provid er Reason for Visit * Reason Onset Date Comments Advice Only 12/03/2024 Leg Pain 12/03/2024 Rash 12/03/2024 Encounter Details Date Type Department Care Team ([facility] st Contact Info) Description 12/03/2024 Nurse Triage [facility] Call [facility] [address] [place] [id number] Yolanda Catalan APRN, CNP [address] [address] Advice Only; Leg Pain; Rash Social History Tobacco Use Types Packs/Day Years Used Date Smoking Tobacco: Never Smokeless Tobacco: Never Alcohol Use Standard Drinks/Week Comments No 0 (1 standard drink = 0.6 oz pur e alcohol) PHQ-2 Answer Date Recorded Total Score - Questions 1-9 0 10/12 Sexually Active Control Partners Comments Yes Inserts, Injection Male Comments Unknown Sex and Gender Information Value Date Recorded Sex Assigned at Not on file Legal Sex Female 9:27 AM CDT Gender Identity Not on file Sexual Orientation Not on file documented as of this encounter Miscellaneous Notes * Telephone Encounter - Andria Farias RN - 12/03/2024 3:41 PM CDT SITUATION: Leg Pain BACKGROUND: Laura contacting PCP office. Patient reported having leg weakness and soreness. Reported symptoms have been occurring for the past few months, becoming worse. Per chart review, patient was last seen in office on 05/29/2023 ASSESSMENT: Symptom Description / Location: Patient reported both legs are causing pain Whole leg is causing pain Patient reported that sometimes it feels like it is too weak to stand Moderate weakness, only happening if a lot of lifting during that day Patient reported that sometimes it looks like legs are cramped up Patient reported rash on both knuckles and fingers and foot Reported symptoms have been occurring for year Cluster of bums-raised As big as a quarter for knuckles On pointer finger, knuckles Denies chest pain -shortness of breath/difficulty breathing -recent work or exercise that involved this part of the body -back pain, leg swelling, numbness -itching, bermudez -new medication -dizziness, headache, sore throat, joint pain Pain: 6/10 leg pain Fever: Denies fever. Treatment / Response: Motrin with some relief. Last Menstrual Period: around 11/23/24 RECOMMENDATION: Go to Office Now. Due to office unavailability, advised for patient to be seen at [facility] or urgent care or emergency department within next two hours. Patient stated she will be seen at [facility] or urgent care [facility] and call for a follow up prompt care visit. Caller notified and verbalized understanding and agreement with plan of treatment. Verified medication, pharmacy, and allergies Verified Assisted Services - See care advice and disposition for Guideline. First positive answer recorded, all responses to prior questions were negative. If symptoms increase, change or if new symptoms develop, call your health care provider or call back. Recommendations were based on caller information and is not a diagnosis. Verified and reviewed all triage information with caller. Reason for Disposition SEVERE pain (e.g., excruciating, unable to do any normal activities) Protocols used: Leg Pain-A-OH * Telephone Encounter - Lalita Olivares - 12/03/2024 3:40 PM CDT Symptom: Leg Pain - Not From Injury Outcome: Transfer to mover helper queue Reason: Trouble walking The caller accepted this outcome. documented in this encounter Plan of Treatment Not on file documented as of this encounter Visit Diagnoses Not on filedocumented in this encounter Additional Health Concerns Assessment Noted Time PHQ-9 Depression Total Score: 0 10/28/19 21 10:00 AM DIRECTOR OF TRANSPORTATION documented as of this encounter Care Teams Industry Analyst Relationship Specialty Start Date End Date Yolanda Catalan APRN, NAINA #[address] [address] PCP - General Advanced Practice Nurse 10/28/20 Yolanda Catalan APRN, CNP #[address] [address] Nurse Practitioner Advanced Practice Nurse 10/23/20 documented as of this encounter
--- OUTSIDE RECORDS SUMMARY | 2024-12-03 18:42 | XMS_ITS | Clinical Summary ---
Author Organization [facility] Address [address] [place] [address] Phone Care Team Providers Care Engineering Production Worker Name Role Phone Yolanda Catalan APRN, CNP Unavailable [phone] Yolanda Catalan APRN, CNP Primary Care Provid er Allergies No known active allergies Medications acetaminophen 500 MG PO TABS Take 500 mg by mouth every 4 hours as needed. Prn for fever Active ibuprofen 400 MG PO TABS Take 400 mg by mouth every 8 hours as needed. Active Active Problems Problem Noted Date Diagnosed Date Pericardial effusion 04/10/2013 Fever of unknown origin 03/13/2013 Mycoplasma infection 03/13/2013 Myalgia 03/13/2013 Macular erythematous rash 03/13/2013 Overview (03/13/2013): Located on bilateral legs Elevated C-reactive protein (CRP) 03/13/2013 Elevated sed rate 03/13/2013 SIRS (systemic inflammatory response syndrome) 0 03/13/2013 Encounters Date Type Department Care Team Description 12/03/2024 [facility] [address] [place] [address] Yolanda Catalan APRN, CNP Advice Only; Leg Pain; Rash from Last 3 Months Immunizations Immunization Administration Dates Next Due DTAP VACCINE 03/07/2006, 2,03/13/2001,01/05,2000 HEP B/HIB Combined Vaccine 10/02/2001,01/05/2001 ,2000 Human Papillomavirus Vaccine (HPV), quadrivalent 08/13/2012,04/09/2012,02/01/2012 Inactivated Polio Vaccine 03/07/2006,11/2000,01/05/2001,11/06 Influenza Vaccine 06/24/2020, 3,07/25/2012,07/16 Influenza Vaccine greater than 3 yrs 06/29/2020 Influenza Vaccine, Quadrivalent, PF 07/22/2017,1 10/02/2015,08/17/2015 Influenza Vaccine,unspecifie d Formulation 07/15/2011 MMR Vaccine 03/07/2006,12/04/2001 Meningococcal MCV4O 02/02/2012 Meningococcal Vaccine 02/07/2017 Pneumococcal Vaccine Peds - 7 Valent ,03/13/2001,01/05/2001,11/06 TDAP Vaccine 01/03/2012 Varicella Vaccine Live 02/02/2012,10/02/2001 Family History Medical History Relation Name Comments Seizures Maternal Aunt Hypertension Maternal Grandfather Rheumatoid Arthritis Maternal Grandfather High Cholesterol Maternal Grandmother Hypertension Maternal Grandmother Migraines Maternal Uncle Relation Name Status Comments Brother Alive Father Alive Maternal Aunt Maternal Grandfather Maternal Grandmother Maternal Uncle Mother Alive Sister Alive Social History Tobacco Use Types Packs/Day Years Used Date Smoking Tobacco: Never Smokeless Tobacco: Never Tobacco Cessation:Counseling Given: Yes Alcohol Use Standard Drinks/Week Comments No 0 [...] on file Sexual Orientation Not on file Last Filed Vital Signs Vital Sign Reading Time Taken Comments Blood Pressure 110/62 05/29/2023 11:23 AM CDT Pulse 83 05/29/2023 11:23 AM CDT Temperature 36.3 C (97.4 F) 05/29/2023 11:23 AM CDT Respiratory Rate 14 05/29/2023 11:23 AM CDT Oxygen Saturation 98% 05/29/2023 11:23 AM CDT Inhaled Oxygen Concentration - - Weight 63.5 kg (140 lb) 05/29/2023 11:23 AM CDT Height 152.4 cm (5') 05/29/2023 11:23 AM CDT Body Mass Index 27.34 05/29/2023 11:23 AM CDT Plan of Treatment Health Maintenance Due Date Last Done Comments Pap Smear 2021 DTaP/Tdap/Td Immunization (7 - Td or Tdap) 01/02/2022 01/03/2012, 03/07/2006, 12/04/2001, Additional history exists Influenza Immunization (#1) 05/12/202406/11, 06/24/2020, 07/22/2017, Additional history exists SARS-COV-2 Immunization ( season) 2024 04/14/2022, 09/07/2021 Respiratory Syncytial Virus (RSV) Immunization (Adult) (1 - 1-dose 75+ series) 2075 Hepatitis B Immunization Completed 002, 01/05/2001, 2000 Pneumococcal Immunization Combined Aged Out 10/02/2001, 03/13/2001, 01/05/2001, Additional history exists No longer eligible based on patient's age to complete this topic Measles Mumps Rubella (MMR) Immunization Discontinued 03/07/2006, 12/04/2001 Polio (IPV) Immunization Discontinued 006, 03/13/2001, 01/05/2001, Additional history exists Varicella Immunization Discontinued 02/02/2012, 2001 Human Papillomavirus (HPV) Immunization Completed 08/13/2012, 04/09/2012, 02/01/2012 Meningococcal Immunization (ACWY) Completed 02/07/2017, 02/02/2012 Hepatitis C Virus (HCV) Screening Completed 12/09/2022 Rotavirus Immunization Aged Out No lo nger eligible based on patient's age to complete this topic Procedures Procedure Name Priority Date/Time Associated Diagnosis Comments HEPATITIS PANEL ACUTE (AHP) Routine 12/09/2022 3:50 PM CDT Elevated liver enzymes from Last 3 Months or Most Recently Relevant to Health Maintenance Results * HEPATITIS PANEL ACUTE (AHP) (12/09/2022 3:50 PM CDT) HEPATITIS A IGM ANTIBODY NON DETECTED NON DETECTED [facility] [id number] 12/09/2022 11:00 PM CDT [facility] Comment: IGM Antibodies to HAV not detected. Does not exclude early acute or recovered HAV infection. HEP B CORE AB (IGM) NON DETECTED NON DETECTED [facility] [id number] B 12/09/2022 11:00 PM CDT [facility] Comment:IGM anti-HBC not det ected. Does not exclude the possibility of exposure to or infection with HBV. HEPATITIS B SURFACE ANTIGEN NON DETECTED NON DETECTED [facility] [id number] B 12/09/2022 11:00 PM CDT [facility] Comment:A nonreactive test r esult does not exclude the possibility of exposure to or infection with Hepatitis B virus. A nonreactive test result in individuals with prior exposure to hepatitis B may be due to antigen levels below the detection limit of this assay or lack of antigen reactivity to the antibodies in this assay. hepatitis C antibody 0.16 <1 S/CO [facility] [id number] B 12/09/2022 11:00 PM CDT [facility] Comment: Signal/Cutoff ratio < 0.79 is Nondetected Signal/Cutoff ratio 0.80-0.99 is Grayzone Signal/Cutoff ratio > 0.99 is Detected Supplemental assays are recommended if signal/cutoff ratio is >/=1.00. Signal/cutoff ratio result >/= 5.00 is 97% predictive of positivity for recombinant immunoblot assay (RIBA) and will be reported to the [place] Department of Public [facility] as required. Blood Venipuncture / Unknown 12/09/2022 3:50 PM CDT 12/09/2022 4:32 PM CDT us Yolanda Catalan CLINICAL SAFETY MANAGER, SOFTWARE TEST ANALYST HEMATOLOGY ORDERABLE S Final Result [facility] [address] [place] [address], [place] from Last 3 Months or Most Recently Relevant to Health Maintenance Insurance MEDICAID [employer] Advance Directives * Full Code (Latest Code Status on File) Date Activated Date Inactivated Comments 04/09/2013 12:24 PM 04/10/2013 7:48 PM * Full Code Date Activated Date Inactivated Comments 03/13/2013 2:50 PM 03/14/2013 4:27 PM Care Teams Engineering Production Worker Relationship Specialty Start Date End Date Yolanda Catalan APRN, CNP #[address] [phone] PCP - General Advanced Practice Nurse 10/28/20 Yolanda Catalan APRN, CNP #[address] [address] Nurse Practitioner Advanced Practice Nurse 10/23/20
== END 2024-12-03 18:10 | disposition home or self-care (01) ==
PROVIDERS: Registered Nurse; Emergency Provider Physician Assistant
DX: M79.605 Pain in left leg (principal); M79.604 Pain in right leg
CPT/HCPCS: 36415; 71046; 80053; 82550; 83690; 83735; 85025; 85610; 85730; 93005; 99283